=== PATIENT | female | born 2005 | race Caucasian/White ===

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

== ENCOUNTER 2023-01-16 19:16 | Emergency (ER) | payer MEDICAID ==
[2023-01-16] MEDS ORDERED: Sodium Chloride 0.9% 10 ML Syringe FLUSH PRN (20:39)
[2023-01-16] MEDS ORDERED: HYDROmorphone 0.5 MG/0.5 ML Syringe IVPUSH ONE (20:44)
[2023-01-16] MEDS ORDERED: Ondansetron 4 MG/2 ML SDV IVPUSH ONE (20:44)
[2023-01-16 20:54] LABS: BASOPHILS ABSOLUTE AUTO 0.03 K/uL (0.00-0.10); BASOPHILS PERCENT AUTO 0.3 % (0.1-1.3); HEMATOCRIT 36.6 % (34.3-46.0); HEMOGLOBIN 12.5 g/dL (11.2-15.5); IMMATURE GRAN ABSOLUTE AUTO 0.03 K/uL (0.00-0.23); IMMATURE GRAN PERCENT AUTO 0.3 % (0.0-0.7); LYMPHOCYTES PERCENT AUTO 19.3 % (11.4-47.7); MEAN CORPUSCULAR HEMOGLOBIN 29.6 pg (31.6-35.5); MEAN CORPUSCULAR HGB CONC 34.2 g/dL (31.6-35.5); MEAN CORPUSCULAR VOLUME 86.5 fL (81.4-99.0); MONOCYTES ABSOLUTE AUTO 1.17 K/uL (0.20-0.90); MONOCYTES PERCENT AUTO 11.9 % (3.3-12.6); NEUTROPHILS PERCENT AUTO 68.2 % (40.0-78.1); PLATELET COUNT,PLT 203 K/uL (130-375); RED BLOOD CELL COUNT 4.23 M/uL (3.77-5.24); WHITE BLOOD CELL COUNT,WBC 9.8 K/uL (3.2-11.0)
[2023-01-16 21:14] LABS: A/G RATIO 0.8 (1.2-2.2); ALANINE AMINOTRANSFERASE,ALT 22 U/L (12-78); ALBUMIN 3.3 g/dL (3.4-5.0); ALKALINE PHOSPHATASE 60 U/L (46-116); ANION GAP 13.3 mmol/L (5.0-14.0); ASPARTATE AMNIOTRANSFERASE,AST 26 U/L (15-37); BILIRUBIN TOTAL 0.5 mg/dL (0.2-1.0); BLOOD UREA NITROGEN,BUN 6 mg/dL (7-18); C-REACTIVE PROTEIN 6.97 mg/dL (0.0-0.3); CALCIUM 8.2 mg/dL (8.5-10.1); CARBON DIOXIDE,CO2 24 mmol/L (21-32); CHLORIDE,CL 98 mmol/L (100-108); CREATININE 0.8 mg/dL (0.6-1.0); EST CRCL DRUG DOSING (CG) 118.21 mL/min; ESTIMATED GFR 109 mL/min (>60); GLUCOSE RANDOM 63 mg/dL (74-106); LIPASE 26 U/L (73-393); POTASSIUM,K 3.3 mmol/L (3.6-5.2); PROTEIN TOTAL,TP 7.6 g/dL (6.4-8.2); SODIUM,NA 132 mmol/L (140-148)
[2023-01-16] MEDS ORDERED: Dextrose 5%-Lactated Ringers 1,000 ML IV SCH (21:15)
[2023-01-16] MEDS ORDERED: 50% Dextrose in Water 50 ML Syringe IVPUSH ONE (21:41)
[2023-01-16] MEDS ORDERED: Sodium Chloride 0.9% 50 ML IV SCH (21:45)
[2023-01-16] MEDS ORDERED: Iopamidol 612 MG/ML 100 ML Bottle IV SCH (21:45)
[2023-01-16 22:44] VITALS: BP 104/69; PULSE 59
== END 2023-01-16 23:13 | disposition home or self-care (01) ==
LOC: JP.ED 19:16
DX: K80.20 Calculus of gallbladder without cholecystitis without obstruction (principal); E10.10 Type 1 diabetes mellitus with ketoacidosis without coma; Z72.0 Tobacco use
CPT/HCPCS: 36415; 74177; 80053; 81025; 83690; 85025; 86140; 96361; 96374; 96375; 99283; 99284; J1170; J2405; J3490; J7121; Q9967

== ENCOUNTER 2023-01-18 03:25 | Emergency (ER) | payer MEDICAID ==
[2023-01-18 03:55] VITALS: BP 120/71; PULSE 107
[2023-01-18] MEDS ORDERED: Acetaminophen 500 MG Tab PO ONE (04:05)
[2023-01-18] MEDS ORDERED: Amoxicillin 500 MG Cap PO ONE (04:29)
== END 2023-01-18 04:56 | disposition home or self-care (01) ==
LOC: JP.ED 03:25
DX: J02.9 Acute pharyngitis, unspecified (principal); R59.0 Localized enlarged lymph nodes; J35.8 Other chronic diseases of tonsils and adenoids; E10.9 Type 1 diabetes mellitus without complications; F17.210 Nicotine dependence, cigarettes, uncomplicated; Z79.4 Long term (current) use of insulin
CPT/HCPCS: 87081; 87880; 99284; A9270

== ENCOUNTER 2023-04-05 07:18 | Emergency (ER) | payer MEDICAID ==
[2023-04-05 07:47] VITALS: BP 140/87; PULSE 71
[2023-04-05] MEDS ORDERED: Ondansetron 4 MG/2 ML SDV IM ONE (07:49)
[2023-04-05 08:01] LABS: BASE EXCESS VENOUS 0.4 mm/L; BICARBONATE,VENOUS 26.2 mmol/L; CARBOXYHEMOGLOBIN 1.1 % (0.0-1.6); METHEMOGLOBIN 0.9 %; O2 SATURATION VENOUS 19.9; OXYHEMOGLOBIN 19.5 %; PCO2 VENOUS 49.2 mm/Hg; PH,VENOUS 7.346 (7.350-7.450); TOTAL HEMOGLOBIN 14.3 g/dL (12.0-16.0)
[2023-04-05 08:01] LABS: HEMATOCRIT 39.6 % (34.3-46.0); HEMOGLOBIN 13.7 g/dL (11.2-15.5); MEAN CORPUSCULAR HEMOGLOBIN 29.4 pg (31.6-35.5); MEAN CORPUSCULAR HGB CONC 34.6 g/dL (31.6-35.5); RED BLOOD CELL COUNT 4.66 M/uL (3.77-5.24)
[2023-04-05 08:02] LABS: PO2 VENOUS 19.3 mm/Hg
[2023-04-05 08:06] LABS: APPEARANCE,URINE CLOUDY (CLEAR); BILIRUBIN,URINE NEGATIVE (NEGATIVE); COLOR,URINE YELLOW (YELLOW); GLUCOSE,URINE NEGATIVE (NEGATIVE); KETONES,URINE NEGATIVE (NEGATIVE); LEUKOCYTE ESTERASE,URINE NEGATIVE (NEGATIVE); NITRITE,URINE NEGATIVE (NEGATIVE); OCCULT BLOOD,URINE NEGATIVE (NEGATIVE); PH,URINE 5.5 (5.0-8.0); PROTEIN,URINE TRACE mg/dL (NEGATIVE); UROBILINOGEN,URINE 0.2 EU/dL (0.2-1.0)
[2023-04-05 08:16] LABS: BACTERIA,URINE MANY; EPITHELIAL CELLS,URINE RARE; MUCUS,URINE NOT SEEN; RBC,URINE NOT SEEN (0-5); WBC,URINE 0-5 (0-5)
[2023-04-05 08:17] LABS: AMORPHOUS SEDIMENT,URINE NOT SEEN
[2023-04-05 08:24] LABS: A/G RATIO 0.9 (1.2-2.2); ALANINE AMINOTRANSFERASE,ALT 18 U/L (12-78); ALBUMIN 3.6 g/dL (3.4-5.0); ALKALINE PHOSPHATASE 71 U/L (46-116); ANION GAP 12.7 mmol/L (5.0-14.0); ASPARTATE AMNIOTRANSFERASE,AST 24 U/L (15-37); BILIRUBIN TOTAL 0.3 mg/dL (0.2-1.0); BLOOD UREA NITROGEN,BUN 11 mg/dL (7-18); CALCIUM 8.7 mg/dL (8.5-10.1); CARBON DIOXIDE,CO2 25 mmol/L (21-32); CHLORIDE,CL 103 mmol/L (100-108); CREATININE 0.8 mg/dL (0.6-1.0); EST CRCL DRUG DOSING (CG) 118.21 mL/min; ESTIMATED GFR 109 mL/min (>60); GLUCOSE RANDOM 168 mg/dL (74-106); MAGNESIUM 1.5 mg/dL (1.8-2.4); POTASSIUM,K 3.7 mmol/L (3.6-5.2); PROTEIN TOTAL,TP 7.7 g/dL (6.4-8.2); SODIUM,NA 137 mmol/L (140-148)
[2023-04-05] MEDS ORDERED: Acetaminophen 325 MG Tab PO ONE (08:26)
== END 2023-04-05 09:05 | disposition home or self-care (01) ==
LOC: JP.ED 07:18
DX: R11.2 Nausea with vomiting, unspecified (principal); N39.0 Urinary tract infection, site not specified; E10.8 Type 1 diabetes mellitus with unspecified complications; Z79.4 Long term (current) use of insulin
CPT/HCPCS: 36415; 80053; 81001; 81025; 82803; 83605; 83690; 83735; 84145; 85027; 87086; 87635; 96372; 99284; A9270; J2405; 99283; U0002

== ENCOUNTER 2023-04-21 06:24 | Emergency (ER) | payer MEDICAID ==
[2023-04-21 06:48] VITALS: BP 140/77; PULSE 66
== END 2023-04-21 08:48 | disposition left against medical advice (07) ==
LOC: JP.ED 06:24
DX: Z53.21 Procedure and treatment not carried out due to patient leaving prior to being seen by health care provider (principal)

== ENCOUNTER 2023-05-15 07:49 | Day surgery (SDC) | payer MEDICAID ==
[~2023-05-15 07:49] MED LIST: Midazolam 1 MG/ML 2 ML SDV ONE; Propofol 200 MG/20 ML SDV ONE; fentaNYL 100 MCG/2 ML SDV ONE
[2023-05-15] MEDS ORDERED: Lactated Ringers 1,000 ML IV SCH (08:30)
[2023-05-15 10:41] VITALS: BP 106/67; PULSE 69
== END 2023-05-15 11:15 | disposition home or self-care (01) ==
LOC: JP.SDS 07:49
PROVIDERS: ATTEND Student in an Organized Health Care Education/Training Program
DX: K21.9 Gastro-esophageal reflux disease without esophagitis (principal); K29.50 Unspecified chronic gastritis without bleeding; K44.9 Diaphragmatic hernia without obstruction or gangrene; E10.9 Type 1 diabetes mellitus without complications
CPT/HCPCS: 43239; 81025; 82947; 88305; J2250; J2704; J3010; J7120

== ENCOUNTER 2023-06-08 05:58 | Observation (INO) | payer MEDICAID ==
[2023-06-08] MEDS ORDERED: Acetaminophen 500 MG Tab PO ONE (06:15)
[2023-06-08] MEDS: Sodium Chloride 0.9% 1,000 ML IV SCH ×4 (06:26→22:44)
[2023-06-08] MEDS ORDERED: Indocyanine Green 25 MG SDV IV ONE (06:30)
[2023-06-08] MEDS ORDERED: Bupivacaine 0.5%/EPINEPHrine 1:200,000 50 ML MDV ONE (06:47)
[2023-06-08] MEDS ORDERED: metroNIDAZOLE/Normal Saline 500 MG in Premix Bag 1 BAG IV ONE (07:00)
[2023-06-08] MEDS ORDERED: cefTRIAXone 2 GM in Sodium Chloride 0.9% 50 ML IV ONE (07:00)
[2023-06-08] MEDS ORDERED: Dexamethasone 4 MG/ML SDV ONE (07:12)
[2023-06-08] MEDS ORDERED: Propofol 200 MG/20 ML SDV ONE (07:12)
[2023-06-08] MEDS ORDERED: Rocuronium 50 MG/5 ML Vial ONE (07:12)
[2023-06-08] MEDS ORDERED: Ondansetron 4 MG/2 ML SDV ONE (07:12)
[2023-06-08] MEDS ORDERED: Glycopyrrolate 0.2 MG/ML 5 ML MDV ONE (07:12)
[2023-06-08] MEDS ORDERED: Neostigmine Methylsulfate 1 MG/ML 5 ML Syringe ONE (07:12)
[2023-06-08] MEDS ORDERED: fentaNYL 250 MCG/5 ML SDV ONE ×2 (07:13→07:49)
[2023-06-08] MEDS ORDERED: Labetalol 20 MG/4 ML Syringe ONE (08:25)
[2023-06-08] MEDS ORDERED: Sennosides/Docusate Sodium 50-8.6 MG Tab PO PRN (09:11)
[2023-06-08] MEDS ORDERED: Ondansetron 4 MG/2 ML SDV IVPUSH PRN (09:11)
[2023-06-08] MEDS: Acetaminophen/HYDROcodone 325-5 MG Tab PO PRN ×3 (10:22→22:42)
[2023-06-08] MEDS ORDERED: Scopolamine 1.5 MG Transdermal Patch TOP SCH (12:00)
[2023-06-08] MEDS ORDERED: 50% Dextrose in Water 50 ML Syringe IVPUSH PRN (12:48)
[2023-06-08] MEDS ORDERED: Glucagon,Human Recombinant 1 MG Vial IM PRN (12:48)
[2023-06-08] MEDS ORDERED: Glucose Gel 15 GM in 37.5 GM Tube PO PRN (13:24)
[2023-06-08] MEDS ORDERED: HYDROmorphone 0.5 MG/0.5 ML Syringe IVPUSH ONE (13:30)
[2023-06-08] MEDS ORDERED: Prochlorperazine 10 MG/2 ML SDV IVPUSH ONE (13:30)
[2023-06-08] MEDS ORDERED: Insulin Lispro 100 Unit/ML 3 ML KwikPen SUBCUT SCH (17:00)
[2023-06-08] MEDS: Ketorolac 15 MG/ML SDV IVPUSH SCH ×2 (18:46→23:44)
[2023-06-09 05:29] LABS: HEMATOCRIT 29.6 % (34.3-46.0); HEMOGLOBIN 10.2 g/dL (11.2-15.5); MEAN CORPUSCULAR HEMOGLOBIN 29.2 pg (31.6-35.5); MEAN CORPUSCULAR HGB CONC 34.5 g/dL (31.6-35.5); MEAN CORPUSCULAR VOLUME 84.8 fL (81.4-99.0); RED BLOOD CELL COUNT 3.49 M/uL (3.77-5.24); WHITE BLOOD CELL COUNT,WBC 8.4 K/uL (3.2-11.0)
[2023-06-09] MEDS: Ketorolac 15 MG/ML SDV IVPUSH SCH (05:45)
[2023-06-09 05:46] LABS: A/G RATIO 0.8 (1.2-2.2); ALANINE AMINOTRANSFERASE,ALT 25 U/L (12-78); ALBUMIN 2.6 g/dL (3.4-5.0); ALKALINE PHOSPHATASE 57 U/L (46-116); ASPARTATE AMNIOTRANSFERASE,AST 20 U/L (15-37); BILIRUBIN TOTAL 0.4 mg/dL (0.2-1.0); BLOOD UREA NITROGEN,BUN 5 mg/dL (7-18); CALCIUM 7.5 mg/dL (8.5-10.1); CARBON DIOXIDE,CO2 27 mmol/L (21-32); CHLORIDE,CL 105 mmol/L (100-108); CREATININE 0.6 mg/dL (0.6-1.0); EST CRCL DRUG DOSING (CG) 161.72 mL/min; ESTIMATED GFR 133 mL/min (>60); PROTEIN TOTAL,TP 5.7 g/dL (6.4-8.2); SODIUM,NA 138 mmol/L (140-148)
[2023-06-09 05:49] LABS: ANION GAP 8.8 mmol/L (5.0-14.0); POTASSIUM,K 2.8 mmol/L (3.6-5.2)
[2023-06-09 05:50] LABS: GLUCOSE RANDOM 45 mg/dL (74-106)
[2023-06-09 05:55] VITALS: BP 125/95; PULSE 78
[2023-06-09] MEDS: Potassium Chloride 10 MEQ in Premix Bag 1 BAG IV SCH ×2 (06:17→07:45)
[2023-06-09] MEDS ORDERED: Potassium Chloride 20 MEQ Tab.ER PO ONE (07:30)
[2023-06-09] MEDS ORDERED: Pantoprazole 40 MG Tab.CR PO SCH (07:30)
[2023-06-09] MEDS ORDERED: [UNRECOGNIZED DRUG - REMARK] TOP SCH (09:00)
[2023-06-09] MEDS ORDERED: TRI LO MILI PO SCH (09:00)
[2023-06-09] MEDS: Acetaminophen/HYDROcodone 325-5 MG Tab PO PRN (11:34)
== END 2023-06-09 12:15 | disposition home or self-care (01) ==
LOC: JP.SDS 05:58 → JP.MS 09:11
PROVIDERS: ADMIT Student in an Organized Health Care Education/Training Program; ATTEND Student in an Organized Health Care Education/Training Program
DX: K80.10 Calculus of gallbladder with chronic cholecystitis without obstruction (principal); E10.9 Type 1 diabetes mellitus without complications; K21.9 Gastro-esophageal reflux disease without esophagitis; F17.210 Nicotine dependence, cigarettes, uncomplicated; Z79.4 Long term (current) use of insulin; Z79.899 Other long term (current) drug therapy
CPT/HCPCS: 36415; 47562; 80053; 81025; 82947; 84132; 85027; 88304; 96365; 96366; 99222; A9270; G0378; J0696; J0780; J1100; J1170; J1885; J2405; J2704; J2710; J3010; J3480; J3490; J7030

== ENCOUNTER 2023-09-20 06:20 | Emergency (ER) | payer MEDICAID ==
[2023-09-20 06:29] VITALS: BP 116/72; PULSE 89
[2023-09-20] MEDS ORDERED: Sodium Chloride 0.9% 10 ML Syringe FLUSH PRN (06:39)
[2023-09-20] MEDS ORDERED: droPERidol 5 MG/2 ML SDV IVPUSH ONE (06:40)
[2023-09-20] MEDS ORDERED: Lactated Ringers 1,000 ML IV ONE (06:40)
[2023-09-20] MEDS ORDERED: Lactated Ringers 1,000 ML IV SCH (06:45)
[2023-09-20 06:47] LABS: BASOPHILS ABSOLUTE AUTO 0.03 K/uL (0.00-0.10); BASOPHILS PERCENT AUTO 0.7 % (0.1-1.3); EOSINOPHILS ABSOLUTE AUTO 0.31 K/uL (0.00-0.40); EOSINOPHILS PERCENT AUTO 6.8 % (0.0-5.4); HEMATOCRIT 37.4 % (34.3-46.0); HEMOGLOBIN 13.4 g/dL (11.2-15.5); IMMATURE GRAN PERCENT AUTO 0.2 % (0.0-0.7); LYMPHOCYTES ABSOLUTE AUTO 1.99 K/uL (0.8-3.3); LYMPHOCYTES PERCENT AUTO 43.9 % (11.4-47.7); MEAN CORPUSCULAR HEMOGLOBIN 30.1 pg (31.6-35.5); MEAN CORPUSCULAR HGB CONC 35.8 g/dL (31.6-35.5); NEUTROPHILS ABSOLUTE AUTO 1.69 K/uL (1.0-7.6); NEUTROPHILS PERCENT AUTO 37.4 % (40.0-78.1); PLATELET COUNT,PLT 309 K/uL (130-375); RED BLOOD CELL COUNT 4.45 M/uL (3.77-5.24); WHITE BLOOD CELL COUNT,WBC 4.5 K/uL (3.2-11.0)
[2023-09-20 06:52] LABS: IMMATURE GRAN ABSOLUTE AUTO 0.01 K/uL (0.00-0.23)
[2023-09-20 07:03] LABS: CALCIUM 8.6 mg/dL (8.5-10.1); CREATININE 0.7 mg/dL (0.6-1.0); EST CRCL DRUG DOSING (CG) 133.98 mL/min; POTASSIUM,K 3.8 mmol/L (3.6-5.2)
[2023-09-20 07:06] LABS: ANION GAP 8.8 mmol/L (5.0-14.0)
[2023-09-20 07:23] LABS: APPEARANCE,URINE SLIGHTLY CLOUDY (CLEAR); BILIRUBIN,URINE NEGATIVE (NEGATIVE); COLOR,URINE YELLOW (YELLOW); GLUCOSE,URINE NEGATIVE (NEGATIVE); KETONES,URINE NEGATIVE (NEGATIVE); LEUKOCYTE ESTERASE,URINE NEGATIVE (NEGATIVE); NITRITE,URINE NEGATIVE (NEGATIVE); OCCULT BLOOD,URINE TRACE-INTACT (NEGATIVE); PROTEIN,URINE 30 mg/dL (NEGATIVE); UROBILINOGEN,URINE 0.2 EU/dL (0.2-1.0)
[2023-09-20 07:38] LABS: RBC,URINE 0-5 (0-5); WBC,URINE 0-5 (0-5)
[2023-09-20 07:39] LABS: AMORPHOUS SEDIMENT,URINE FEW; BACTERIA,URINE MANY; EPITHELIAL CELLS,URINE MANY; MUCUS,URINE MANY
== END 2023-09-20 08:09 | disposition home or self-care (01) ==
LOC: JP.ED 06:20
DX: E86.0 Dehydration (principal); R11.10 Vomiting, unspecified; F17.210 Nicotine dependence, cigarettes, uncomplicated; E10.9 Type 1 diabetes mellitus without complications; K21.9 Gastro-esophageal reflux disease without esophagitis; Z79.899 Other long term (current) drug therapy; Z79.4 Long term (current) use of insulin
CPT/HCPCS: 36415; 80048; 81001; 81025; 83605; 85025; 96361; 96374; 99284; J1790; J3490; J7120

== ENCOUNTER 2024-11-29 01:16 | Emergency (ER) | payer MEDICAID ==
[2024-11-29 01:27] VITALS: BP 129/88
[2024-11-29 01:55] VITALS: PULSE 69
[2024-11-29] MEDS: Ondansetron 4 MG/2 ML SDV IVPUSH ONE (02:27)
[2024-11-29 02:28] LABS: BASOPHILS PERCENT AUTO 0.3 % (0.1-1.3); EOSINOPHILS ABSOLUTE AUTO 0.05 K/uL (0.00-0.40); EOSINOPHILS PERCENT AUTO 0.6 % (0.0-5.4); HEMATOCRIT 37.5 % (34.3-46.0); HEMOGLOBIN 13.5 g/dL (11.2-15.5); IMMATURE GRAN PERCENT AUTO 0.3 % (0.0-0.7); LYMPHOCYTES ABSOLUTE AUTO 2.02 K/uL (0.8-3.3); LYMPHOCYTES PERCENT AUTO 25.3 % (11.4-47.7); MEAN CORPUSCULAR HEMOGLOBIN 30.2 pg (31.6-35.5); MEAN CORPUSCULAR VOLUME 83.9 fL (81.4-99.0); MONOCYTES ABSOLUTE AUTO 0.73 K/uL (0.20-0.90); MONOCYTES PERCENT AUTO 9.1 % (3.3-12.6); NEUTROPHILS ABSOLUTE AUTO 5.16 K/uL (1.0-7.6); NEUTROPHILS PERCENT AUTO 64.4 % (40.0-78.1); PLATELET COUNT,PLT 285 K/uL (130-375); RED BLOOD CELL COUNT 4.47 M/uL (3.77-5.24)
[2024-11-29] MEDS: diphenhydrAMINE 50 MG/ML SDV IVPUSH ONE (02:29)
[2024-11-29] MEDS: Alum Hydrox/Mag Hydrox/Simeth 15 ML, Lidocaine 2% 15 ML PO ONE (02:33)
[2024-11-29] MEDS: Sodium Chloride 0.9% 1,000 ML IV SCH (02:40)
[2024-11-29 02:45] LABS: BASOPHILS ABSOLUTE AUTO 0.02 K/uL (0.00-0.10); IMMATURE GRAN ABSOLUTE AUTO 0.02 K/uL (0.00-0.23)
[2024-11-29 02:52] LABS: ALANINE AMINOTRANSFERASE,ALT 10 U/L (12-78); ALBUMIN 3.7 g/dL (3.4-5.0); ALKALINE PHOSPHATASE 81 U/L (46-116); ASPARTATE AMNIOTRANSFERASE,AST 13 U/L (15-37); BILIRUBIN TOTAL 0.5 mg/dL (0.2-1.0); BLOOD UREA NITROGEN,BUN 8 mg/dL (7-18); CARBON DIOXIDE,CO2 26 mmol/L (21-32); CHLORIDE,CL 103 mmol/L (100-108); CREATININE 0.8 mg/dL (0.6-1.0); EST CRCL DRUG DOSING (CG) 116.25 mL/min; ESTIMATED GFR 107 mL/min (>60); GLUCOSE RANDOM 151 mg/dL (74-106); POTASSIUM,K 3.3 mmol/L (3.6-5.2); PROTEIN TOTAL,TP 7.6 g/dL (6.4-8.2); SODIUM,NA 140 mmol/L (140-148)
[2024-11-29 02:54] LABS: ANION GAP 14.3 mmol/L (5.0-14.0)
[2024-11-29 03:08] LABS: APPEARANCE,URINE CLEAR (CLEAR); BILIRUBIN,URINE NEGATIVE (NEGATIVE); COLOR,URINE YELLOW (YELLOW); GLUCOSE,URINE NEGATIVE (NEGATIVE); KETONES,URINE 40 mg/dL (NEGATIVE); LEUKOCYTE ESTERASE,URINE NEGATIVE (NEGATIVE); NITRITE,URINE NEGATIVE (NEGATIVE); OCCULT BLOOD,URINE NEGATIVE (NEGATIVE); PROTEIN,URINE NEGATIVE (NEGATIVE); UROBILINOGEN,URINE 0.2 EU/dL (0.2-1.0)
[2024-11-29 03:18] LABS: AMORPHOUS SEDIMENT,URINE NOT SEEN; BACTERIA,URINE RARE; EPITHELIAL CELLS,URINE FEW; MUCUS,URINE NOT SEEN; RBC,URINE 0-5 (0-5); WBC,URINE 0-5 (0-5)
== END 2024-11-29 03:50 | disposition home or self-care (01) ==
LOC: JP.ED 01:16
DX: R19.7 Diarrhea, unspecified (principal); R11.10 Vomiting, unspecified; R07.2 Precordial pain; Z79.4 Long term (current) use of insulin; Z90.49 Acquired absence of other specified parts of digestive tract; E10.9 Type 1 diabetes mellitus without complications
CPT/HCPCS: 36415; 71046; 80053; 81001; 81025; 85025; 87428; 93005; 96361; 96374; 96375; 99284; A9270; J1200; J2405; J7030

== ENCOUNTER 2025-03-17 21:40 | Emergency (ER) | payer MEDICAID ==
[2025-03-17] MEDS: Ondansetron 4 MG Tab.DIS PO ONE (23:47)
[2025-03-17 23:53] VITALS: BP 121/81; PULSE 97
== END 2025-03-17 23:52 | disposition home or self-care (01) ==
LOC: JP.ED 21:40
DX: J02.0 Streptococcal pharyngitis (principal); E10.9 Type 1 diabetes mellitus without complications; F17.210 Nicotine dependence, cigarettes, uncomplicated; Z79.4 Long term (current) use of insulin; Z90.49 Acquired absence of other specified parts of digestive tract
CPT/HCPCS: 87651; 99284